=== PATIENT | female | born 1935 | race Caucasian/White ===

== ENCOUNTER 2016-08-04 | Outpatient (CLI) | payer MEDICARE, BC | END 2016-08-04 20:26 | disposition critical access hospital (66) | CPT/HCPCS: A0425; A0429 ==

== ENCOUNTER 2016-08-04 20:38 | Emergency (ER) | payer MEDICARE, BC ==
[2016-08-04] MEDS ORDERED: SODIUM CHLORIDE 0.9% 1,000 ML IV ONE (20:46)
[2016-08-04] MEDS ORDERED: ACETAMINOPHEN 325 MG TABLET PO STA (20:46)
[2016-08-04] MEDS ORDERED: ACETAMINOPHEN 325 MG TABLET PO ONE (20:49)
[2016-08-04] MEDS ORDERED: levoFLOXacin 250 MG TABLET PO STA (21:43)
[2016-08-04] MEDS ORDERED: levoFLOXacin 250 MG TABLET PO ONE (21:47)
== END 2016-08-04 23:38 | disposition home or self-care (01) ==
DX: N39.0 Urinary tract infection, site not specified (principal); R25.2 Cramp and spasm; R00.0 Tachycardia, unspecified; I69.354 Hemiplegia and hemiparesis following cerebral infarction affecting left non-dominant side; Z79.02 Long term (current) use of antithrombotics/antiplatelets
CPT/HCPCS: 36415; 70450; 71020; 80053; 81001; 83605; 83690; 83735; 83880; 84100; 84443; 84484; 85025; 87040; 87077; 87086; 87181; 93005; 93010; 99284; A9270

== ENCOUNTER 2016-08-05 14:37 | Inpatient (IN) | payer MEDICARE, BC ==
[2016-08-05] MEDS ORDERED: SODIUM CHLORIDE FLUSH 0.9% 10 ML SYRINGE IVP PRN (16:30)
[2016-08-05] MEDS: SODIUM CHLORIDE 0.9% 1,000 ML IV SCH (17:59)
[2016-08-05] MEDS: ACETAMINOPHEN 325 MG TABLET PO PRN (19:54)
[2016-08-05] MEDS: ATORVASTATIN 40 MG TABLET PO SCH (21:12)
[2016-08-05] MEDS: BACLOFEN 10 MG TABLET PO PRN (21:12)
[2016-08-05] MEDS: PREGABALIN 25 MG CAPSULE PO SCH (21:12)
[2016-08-05] MEDS: SODIUM CHLORIDE FLUSH 0.9% 10 ML SYRINGE IVP SCH (21:12)
[2016-08-06] MEDS: SODIUM CHLORIDE 0.9% 1,000 ML IV SCH ×2 (04:01→14:10)
[2016-08-06] MEDS: PREGABALIN 25 MG CAPSULE PO SCH ×3 (06:58→21:01)
[2016-08-06] MEDS: SODIUM CHLORIDE FLUSH 0.9% 10 ML SYRINGE IVP SCH ×3 (07:00→21:01)
[2016-08-06] MEDS ORDERED: cefTRIAXone 500 MG VIAL IVP SCH (09:00)
[2016-08-06] MEDS ORDERED: BIOTIN 5 MG PO SCH (09:00)
[2016-08-06] MEDS: cefTRIAXone 2 GM in SODIUM CHLORIDE 0.9% MINIBAG 100 ML IV SCH (09:53)
[2016-08-06] MEDS: CHOLECALCIFEROL 400 UNIT TABLET PO SCH (09:53)
[2016-08-06] MEDS: ENOXAPARIN 40 MG/0.4 ML SYRINGE SUBQ SCH (09:53)
[2016-08-06] MEDS: CLOPIDOGREL 75 MG TABLET PO SCH (09:53)
[2016-08-06] MEDS: MAGNESIUM OXIDE 400 MG TABLET PO SCH (09:53)
[2016-08-06] MEDS: POLYETHYLENE GLYCOL 3350 17 GM PACKET PO SCH (09:53)
[2016-08-06] MEDS: CALCIUM CARBONATE CHEW 500 MG TABLET PO SCH (09:53)
[2016-08-06] MEDS: BACLOFEN 10 MG TABLET PO PRN ×2 (09:58→16:48)
[2016-08-06] MEDS: ACETAMINOPHEN 325 MG TABLET PO PRN (16:48)
[2016-08-06] MEDS ORDERED: cloNIDine 0.1 MG TABLET PO PRN (18:01)
[2016-08-06] MEDS: ATORVASTATIN 40 MG TABLET PO SCH (20:47)
[2016-08-07] MEDS: SODIUM CHLORIDE 0.9% 1,000 ML IV SCH (00:35)
[2016-08-07] MEDS: ZOLPIDEM 5 MG TABLET PO PRN (00:36)
[2016-08-07] MEDS: PREGABALIN 25 MG CAPSULE PO SCH ×3 (05:34→22:01)
[2016-08-07] MEDS: SODIUM CHLORIDE FLUSH 0.9% 10 ML SYRINGE IVP SCH ×3 (05:35→22:03)
[2016-08-07] MEDS: BACLOFEN 10 MG TABLET PO PRN ×3 (05:40→22:02)
[2016-08-07] MEDS: cefTRIAXone 2 GM in SODIUM CHLORIDE 0.9% MINIBAG 100 ML IV SCH (08:55)
[2016-08-07] MEDS: ENOXAPARIN 40 MG/0.4 ML SYRINGE SUBQ SCH (08:55)
[2016-08-07] MEDS: CLOPIDOGREL 75 MG TABLET PO SCH (08:56)
[2016-08-07] MEDS: CALCIUM CARBONATE CHEW 500 MG TABLET PO SCH (08:56)
[2016-08-07] MEDS: MAGNESIUM OXIDE 400 MG TABLET PO SCH (08:56)
[2016-08-07] MEDS: POLYETHYLENE GLYCOL 3350 17 GM PACKET PO SCH (08:57)
[2016-08-07] MEDS: CHOLECALCIFEROL 400 UNIT TABLET PO SCH (08:57)
[2016-08-07] MEDS: POTASSIUM CHLORIDE 10 MEQ CAPSULE PO SCH (13:44)
[2016-08-07] MEDS: ATORVASTATIN 40 MG TABLET PO SCH (22:01)
[2016-08-07] MEDS: ACETAMINOPHEN 325 MG TABLET PO PRN (22:02)
[2016-08-08] MEDS: ZOLPIDEM 5 MG TABLET PO PRN (00:29)
[2016-08-08] MEDS: BACLOFEN 10 MG TABLET PO PRN (06:33)
[2016-08-08] MEDS: SODIUM CHLORIDE FLUSH 0.9% 10 ML SYRINGE IVP SCH (06:33)
[2016-08-08] MEDS: PREGABALIN 25 MG CAPSULE PO SCH (06:33)
[2016-08-08] MEDS: cefTRIAXone 2 GM in SODIUM CHLORIDE 0.9% MINIBAG 100 ML IV SCH (08:50)
[2016-08-08] MEDS ORDERED: POTASSIUM CHLORIDE 20 MEQ TABLET PO ONE (09:30)
[2016-08-08] MEDS: POTASSIUM CHLORIDE 10 MEQ CAPSULE PO SCH (10:29)
[2016-08-08] MEDS: MAGNESIUM OXIDE 400 MG TABLET PO SCH (10:29)
[2016-08-08] MEDS: CALCIUM CARBONATE CHEW 500 MG TABLET PO SCH (10:30)
[2016-08-08] MEDS: CHOLECALCIFEROL 400 UNIT TABLET PO SCH (10:30)
[2016-08-08] MEDS: CLOPIDOGREL 75 MG TABLET PO SCH (10:30)
[2016-08-08] MEDS: POLYETHYLENE GLYCOL 3350 17 GM PACKET PO SCH ×2 (10:31→10:42)
[2016-08-08] MEDS: ENOXAPARIN 40 MG/0.4 ML SYRINGE SUBQ SCH (10:31)
== END 2016-08-08 14:00 | disposition home or self-care (01) | DRG 871 ==
DX: A41.9 Sepsis, unspecified organism (principal); A41.51 Sepsis due to Escherichia coli [E. coli]; N39.0 Urinary tract infection, site not specified; B96.20 Unspecified Escherichia coli [E. coli] as the cause of diseases classified elsewhere; R65.21 Severe sepsis with septic shock; N30.00 Acute cystitis without hematuria; I69.354 Hemiplegia and hemiparesis following cerebral infarction affecting left non-dominant side; E78.00 Pure hypercholesterolemia, unspecified; E87.6 Hypokalemia; I69.398 Other sequelae of cerebral infarction; R47.9 Unspecified speech disturbances; Z79.02 Long term (current) use of antithrombotics/antiplatelets; Z87.891 Personal history of nicotine dependence; Z91.81 History of falling

== ENCOUNTER 2016-08-29 08:00 | Outpatient (CLI) | payer MEDICARE, BC | END 2016-08-29 08:01 | disposition home or self-care (01) | DX: R30.0 Dysuria (principal); E87.6 Hypokalemia; N39.0 Urinary tract infection, site not specified ==

== ENCOUNTER 2017-06-12 14:37 | Outpatient (CLI) | payer MEDICARE, BC ==
[2017-06-12 13:11] LABS: BASOPHILS # (AUTO) 0.1 10^3/uL (0.0-0.1); BASOPHILS % (AUTO) 1.1 %; EOSINOPHILS # (AUTO) 0.1 10^3/uL (0.0-0.7); EOSINOPHILS % (AUTO) 1.8 %; HCT - HEMATOCRIT 44.2 % (37.0-47.0); HGB - HEMOGLOBIN 14.9 g/dL (12.0-16.0); LYMPHOCYTES % (AUTO) 39.1 %; MEAN CORPUSCULAR HGB CONC 33.7 g/dL (32.0-36.0); MEAN CORPUSCULAR VOLUME 91.9 fL (81.0-99.0); MEAN PLATELET VOLUME 9.5 fL (7.9-10.8); MONOCYTES # (AUTO) 0.4 10^3/uL (0.0-1.0); MONOCYTES % (AUTO) 8.5 %; NEUTROPHILS # (AUTO) 2.5 10^3/uL (1.5-6.6); NEUTROPHILS % (AUTO) 49.5 %; RED BLOOD COUNT 4.81 10^6/uL (4.20-5.40); UNCORRECTED WHITE BLOOD COUNT 5.1 x10^3/uL; WHITE BLOOD COUNT 5.1 x10^3/uL (4.8-10.8)
[2017-06-12 13:31] LABS: ALBUMIN/GLOBULIN RATIO 1.2 (1.0-2.2); BILIRUBIN,TOTAL 0.6 mg/dL (0.2-1.0); BUN - BLOOD UREA NITROGEN 17 mg/dL (6-20); CALCIUM 9.6 mg/dL (8.5-10.3); CARBON DIOXIDE - CO2 30 mmol/L (21-32); CHLORIDE 105 mmol/L (101-111); CHOL/HDL RATIO 2.9 (<4.4); CHOLESTEROL 202 mg/dL; CREATININE 0.7 mg/dL (0.4-1.0); GFR - MDRD 80 (>89); GLUCOSE 88 mg/dL (70-100); HDL CHOLESTEROL 70 mg/dL; LDL/HDL RATIO 1.5 (<4.4); POTASSIUM 4.4 mmol/L (3.5-5.0); SODIUM 141 mmol/L (135-145); TOTAL PROTEIN 7.9 g/dL (6.7-8.2); TRIGLYCERIDES 130 mg/dL; VLDL CHOLESTEROL 26 mg/dL
[2017-06-12 13:41] LABS: HEMOGLOBIN A1C 0.54 g/dL
== END 2017-06-12 14:38 | disposition home or self-care (01) ==
LOC: LAB.R 14:37
PROVIDERS: ATTEND Internal Medicine
DX: I63.9 Cerebral infarction, unspecified (principal); M19.90 Unspecified osteoarthritis, unspecified site; E78.5 Hyperlipidemia, unspecified; R73.9 Hyperglycemia, unspecified; Z79.899 Other long term (current) drug therapy
CPT/HCPCS: 80053; 80061; 83036; 84443; 85025

== ENCOUNTER 2017-07-25 08:00 | Outpatient (CLI) | payer MEDICARE, BC ==
[2017-07-25 14:10] LABS: ALT ALANINE AMINOTRANSFERASE 17 IU/L (10-60); AST ASPARTATE AMINOTRANSFERASE 22 IU/L (10-42); LDL CHOLESTEROL,DIRECT 84 mg/dL
== END 2017-07-25 08:01 | disposition home or self-care (01) ==
LOC: LAB.R 08:00
PROVIDERS: ATTEND Internal Medicine
DX: E78.5 Hyperlipidemia, unspecified (principal)
CPT/HCPCS: 83721; 84450; 84460

== ENCOUNTER 2017-10-26 12:45 | Emergency (ER) | payer MEDICARE, BC ==
[2017-10-26] MEDS ORDERED: oxyCODONE 5 MG TABLET PO STA (12:56)
--- NOTE | 2017-10-26 13:00 | ED Physician Documentation ---
History of Present Illness - Stated complaint Stated Complaint: GLF/HD PX - Chief complaint Chief Complaint: Heent - History obtained from History obtained from: Patient - History of Present Illness Timing: How many minutes ago (15) Pain level max: 8 Pain level now: 8 Improved by: rest Worsened by: palpation - Additonal information Additional information: Patient is an 82-year-old female who was walking out of the hospital with a utilizing her walker when she tripped and fell, landing backwards on her head. Initially seen and declined any care in the lobby. However she started to have increasing head pain and swelling to the occiput. She does take Plavix and so her checked her into the emergency department. She denies any neck or back pain. No hip pain. No leg pain. No numbness or tingling. No loss of consciousness. No vomiting. Review of Systems Ten Systems: 10 systems reviewed and negative Constitutional: denies: Fever, Chills Ears: denies: Ear pain Nose: denies: Rhinorrhea / runny nose, Congestion Throat: denies: Sore throat Cardiac: denies: Chest pain / pressure Respiratory: denies: Cough GI: denies: Abdominal Pain, Vomiting, Diarrhea Skin: denies: Rash Musculoskeletal: denies: Neck pain, Back pain Neurologic: denies: Focal weakness, Numbness, Confused, Altered mental status, LOC PD PAST MEDICAL HISTORY - Past Medical History Cardiovascular: High cholesterol Respiratory: None Neuro: CVA Endocrine/Autoimmune: None GI: None : None HEENT: Chronic hearing loss, Other Psych: None Musculoskeletal: None Derm: None - Past Surgical History Past Surgical History: No General: Colonoscopy Ortho: Other /GL[employer]ILN [employer]ACER: Dilation and currettage, Other HEENT: Cataracts - Present Medications Home Medications: Ambulatory Orders Medication Instructions Recorded Confirmed Baclofen 20 mg PO 0600,1200 05/05/15 08/06/16 Clopidogrel [Plavix] 75 mg PO DAILY@1200 05/05/15 08/06/16 Pregabalin [Lyrica] 75 mg PO BID 06/01/15 08/06/16 Magnesium Oxide [Magnesium] 400 mg PO QDDINNER 08/02/15 08/06/16 Atorvastatin Calcium 80 mg PO QPM 08/05/16 08/05/16 Duloxetine HCl 30 mg PO QDDINNER 08/05/16 08/06/16 Baclofen 40 mg PO QPM 08/06/16 08/06/16 Naproxen Sodium [Aleve] 220 mg PO DAILY 08/06/16 08/06/16 Levofloxacin [Levaquin] 750 mg PO BIDWM #4 tablet 08/08/16 Potassium Chloride [Micro-K] 10 meq PO DAILYWM #15 capsule 08/08/16 - Allergies Allergies/Adverse Reactions: Allergies Allergy/AdvReac Type Severity Reaction Status Date / Time No Known Drug Allergies Allergy Verified 08/02/15 13:23 - Social History Does the pt smoke?: No Smoking Status: Never smoker Does the pt drink ETOH?: Yes Does the pt have substance abuse?: No - Immunizations Immunizations are current?: Yes PD ED PE NORMAL - Vitals Vital signs reviewed: Yes - General General: Alert and oriented X 3, No acute distress - HEENT HEENT: PERRL, EOMI, Moist mucous membranes, Other (posterior scalp hematoma, no palpable skull fractures) - Neck Neck: Supple, no meningeal sign, No bony TTP, Other (FROM without pain) - Cardiac Cardiac: RRR, Strong equal pulses - Respiratory Respiratory: No respiratory distress, Clear bilaterally - Abdomen Abdomen: Soft, Non tender, Non distended - Back Back: No CVA TTP, No spinal TTP - Derm Derm: Warm and dry, No rash - Extremities Extremities: No deformity, No tenderness to palpate, Normal ROM s pain - Neuro Neuro: Alert and oriented X 3, sticker hand 2-12 intact, No motor deficit, No sensory deficit, Normal speech Eye Opening: Spontaneous Motor: Obeys Commands Verbal: Oriented GCS Score: 15 - Psych Psych: Normal mood Results - Vitals Vitals: Vital Signs - 24 hr 10/26/17 10/26/17 12:47 14:41 Temperature 36.7 C Heart Rate 73 62 Respiratory 16 18 Rate Blood Pressure 165/76 H 170/70 H O2 Saturation 97 94 Oxygen O2 Source Room air - Rads (name of study) head CT Radiology: Prelim report reviewed, EMP read contemporaneously, See rad report ( No acute intracranial abnormality. No skull fracture) PD MEDICAL DECISION MAKING - ED course Complexity details: reviewed results, re-evaluated patient, considered differential, d/w patient, d/w family ED course: Patient is an 82-year-old female who fell today, striking the occiput of her head on the ground. Small posterior occipital hematoma. No palpable skull fractures. She is on Plavix. Head CT is negative. Pain well controlled. Ambulating well with her walker. is comfortable taking her home and will stay at home with her today. No neck or back pain. No hip pain. Patient counseled regarding signs and symptoms for which I believe and urgent re- evaluation would be necessary. Patient with good understanding of and agreement to plan and is comfortable going home at this time This document was made in part using voice recognition software. While efforts are made to proofread this document, sound alike and grammatical errors may occur. Departure - Departure Disposition: Home, Self Care Clinical Impression: Fall Qualifiers: Encounter type: initial encounter Qualified Code(s): W19.XXXA - Unspecified fall, initial encounter Head injury Qualifiers: Encounter type: initial encounter Qualified Code(s): S09.90XA - Unspecified injury of head, initial encounter Condition: Good Instructions: ED Head Injury Closed Follow-Up: Marin Landa MD [Primary Care Provider] - Within 1 week Comments: Return if you worsen. Your head CT is normal today. You can use tylenol at home as needed for pain. Discharge Date/Time: 10/26/17 14:40
--- NOTE | 2017-10-26 13:46 | CT Preliminary Report ---
Exam: CT HEAD W/O IMPRESSION: 1. Small right occipital scalp hematoma. 2. No acute intracranial abnormality nor bleed. [facility] SITE ID: [id number]
--- NOTE | 2017-10-26 13:57 | CT Report ---
EXAM: CT HEAD EXAM DATE: 10/26/2017 01:14 PM. CLINICAL HISTORY: Prior stroke. Fall, occipital head injury, patient takes Plavix. Occipital headache . COMPARISON: 08/04/2016. TECHNIQUE: Multiaxial CT images were obtained from the foramen magnum to the vertex. Reformats: Coron al. IV contrast: None. In accordance with CT protocol optimization, one or more of the following dose reduction techniques w ere utilized for this exam: automated exposure control, adjustment of mA and/or KV based on patient s ize, or use of iterative reconstructive technique. FINDINGS: Parenchyma: Old 1 cm vascular insult posterior limb right internal capsule. No intraparenchymal hemorrhage. No evidence of mass, midline shift, or CT findings of acute infarctio n. Sy-white differentiation is distinct. Diffuse chronic microangiopathic white matter changes are evident. Extraaxial Spaces: Normal for age. No subdural or epidural collections identified. Ventricles: The ventricles and cortical sulci are enlarged, consistent with age-related tissue loss. Sinuses and orbits: Imaged paranasal sinuses, orbits, and mastoids show no significant abnormality. Bones: No evidence of fracture or calvarial defect. Other: Small hematoma right occipital scalp. IMPRESSION: 1. Small right occipital scalp hematoma. 2. No acute intracranial abnormality nor bleed. [facility] Referring Provider Line: [phone] SITE ID: [id number]
[2017-10-26 14:42] VITALS: BP 170/70
== END 2017-10-26 14:40 | disposition home or self-care (01) ==
LOC: ED 12:45
DX: S09.90XA Unspecified injury of head, initial encounter (principal); W01.0XXA Fall on same level from slipping, tripping and stumbling without subsequent striking against object, initial encounter; Y93.01 Activity, walking, marching and hiking; E78.00 Pure hypercholesterolemia, unspecified; Z86.73 Personal history of transient ischemic attack (TIA), and cerebral infarction without residual deficits
CPT/HCPCS: 70450; 99283; A9270

== ENCOUNTER 2018-07-10 09:00 | Outpatient (CLI) | payer MEDICARE, BC ==
[2018-07-10 11:42] LABS: BASOPHILS % (AUTO) 0.8 %; EOSINOPHILS # (AUTO) 0.1 10^3/uL (0.0-0.7); HGB - HEMOGLOBIN 15.7 g/dL (12.0-16.0); LYMPHOCYTES # (AUTO) 1.9 10^3/uL (1.5-3.5); LYMPHOCYTES % (AUTO) 32.9 %; MEAN CORPUSCULAR HEMOGLOBIN 31.1 pg (27.0-31.0); MEAN CORPUSCULAR HGB CONC 33.6 g/dL (32.0-36.0); MEAN CORPUSCULAR VOLUME 92.6 fL (81.0-99.0); MEAN PLATELET VOLUME 9.4 fL (7.9-10.8); MONOCYTES # (AUTO) 0.4 10^3/uL (0.0-1.0); MONOCYTES % (AUTO) 7.6 %; NEUTROPHILS # (AUTO) 3.3 10^3/uL (1.5-6.6); NEUTROPHILS % (AUTO) 56.7 %; PLT - PLATELET COUNT 227 10^3/uL (130-450); RED BLOOD COUNT 5.05 10^6/uL (4.20-5.40); RED CELL DISTRIBUTION WIDTH 13.4 % (12.0-15.0); WHITE BLOOD COUNT 5.9 x10^3/uL (4.8-10.8)
[2018-07-10 11:55] LABS: ALBUMIN 4.3 g/dL (3.2-5.5); ALBUMIN/GLOBULIN RATIO 1.2 (1.0-2.2); ALKALINE PHOSPHATASE 93 IU/L (42-121); ALT ALANINE AMINOTRANSFERASE 18 IU/L (10-60); AST ASPARTATE AMINOTRANSFERASE 23 IU/L (10-42); BILIRUBIN,TOTAL 0.7 mg/dL (0.2-1.0); BUN - BLOOD UREA NITROGEN 20 mg/dL (6-20); CALCIUM 9.2 mg/dL (8.5-10.3); CARBON DIOXIDE - CO2 29 mmol/L (21-32); CHLORIDE 103 mmol/L (101-111); CHOL/HDL RATIO 2.8 (<4.4); CHOLESTEROL 215 mg/dL; CREATININE 0.7 mg/dL (0.4-1.0); GFR - MDRD 80 (>89); GLUCOSE 87 mg/dL (70-100); HDL CHOLESTEROL 76 mg/dL; LDL CHOLESTEROL,CALCULATED 119 mg/dL; LDL/HDL RATIO 1.6 (<4.4); SODIUM 139 mmol/L (135-145); VLDL CHOLESTEROL 20 mg/dL
== END 2018-07-10 23:59 | disposition home or self-care (01) ==
LOC: LAB.R 09:00
PROVIDERS: ATTEND Internal Medicine
DX: G62.9 Polyneuropathy, unspecified (principal); I63.9 Cerebral infarction, unspecified; E78.5 Hyperlipidemia, unspecified; R73.9 Hyperglycemia, unspecified; M19.90 Unspecified osteoarthritis, unspecified site; Z79.899 Other long term (current) drug therapy
CPT/HCPCS: 80053; 80061; 83721; 84443; 85025

== ENCOUNTER 2018-07-23 12:56 | Outpatient (CLI) | payer MEDICARE, BC ==
--- NOTE | 2018-07-24 09:37 | DEXA Report ---
Reason: POSTMENOPAUSAL,OSTEOPENIA Procedure Date: 07/23/2018 Accession Number: [id number] / [id number] Procedure: DEX - Dexa Spine and/or Hip CPT Code: FULL RESULT: EXAM: Dexa Spine and/or Hip DATE: 07/23/2018 2:15 PM CLINICAL HISTORY: POSTMENOPAUSAL,OSTEOPENIA TECHNIQUE: Dual energy x-ray absorptiometry (DXA) was performed on a Zipfit System. Regions measured are the AP Spine, femoral neck, and if needed forearm. COMPARISON: None. In accordance with the International Society for Clinical Densitometry (ISCD) guidelines, data from previous exams may be reanalyzed using current recommendations and techniques. This is done to allow a more accurate basis for comparison with the current study. FINDINGS: The data for the lumbar spine is as follows: BMD (g/cm/cm) T-SCORE Z-SCORE REGION L1 0.946 -1.5 0.3 L2 0.923 -2.3 -0.5 L3 1.058 -1.2 0.7 L4 1.006 -1.6 0.2 TOTAL 0.986 -1.6 0.2 NOTE: All evaluable vertebrae are used for classification The data for the hip is as follows: BMD (g/cm/cm) T-SCORE Z-SCORE REGION Neck 0.677 -2.6 -0.3 TOTAL 0.561 -3.5 -1.4 NOTE: The femoral neck or total proximal femur, whichever is lowest, is used for classification. IMPRESSION: THE WHO CLASSIFICATION BASED ON THE INTERNATIONAL REFERENCE STANDARD IS OSTEOPOROSIS. THE FRACTURE RISK IS HIGH. RECOMMENDATION: Patients with diagnosis of osteoporosis or osteopenia should have regular bone mineral density assessment. For those eligible for Medicare, routine testing is allowed once every 2 years. Testing frequency can be increased for patients who have rapidly progressing disease or for those who are receiving medical therapy to restore bone mass. COMMENT: World Health Organization (WHO) definitions for osteoporosis and osteopenia: NORMAL BMD: T-score at -1.0 or higher, fracture risk is low OSTEOPENIA BMD: T-score between -1.0 and -2.5, fracture risk is increased. OSTEOPOROSIS BMD: T-score at -2.5 or lower, fracture risk is high. National Osteoporosis Foundation recommends: 1. Obtain adequate dietary calcium (at least 1200 mg per day) and vitamin D (400-800 international units per day). 2. Participate, as appropriate, in regular weightbearing and muscle-strengthening exercise. 3. Avoid tobacco use and reduce alcohol and caffeine intake. 4. For more detailed information see the website at www.NOF.org.
== END 2018-07-23 12:57 | disposition home or self-care (01) ==
LOC: DI 12:56
PROVIDERS: ATTEND Internal Medicine
DX: M81.0 Age-related osteoporosis without current pathological fracture (principal)
CPT/HCPCS: 77080

== ENCOUNTER 2018-08-07 11:38 | Outpatient (CLI) | payer MEDICARE, BC ==
--- NOTE | 2018-08-07 14:30 | XRAY Report ---
Reason: RIB PAIN,LEFT SIDED Procedure Date: 08/07/2018 Accession Number: [id number] / [id number] Procedure: XR - Chest 2 View X-Ray CPT Code: 98569 FULL RESULT: EXAM: CHEST RADIOGRAPHY EXAM DATE: 08/07/2018 12:13 PM. CLINICAL HISTORY: Rib pain, left sided. COMPARISON: Chest 2 view PA/LAT 08/04/2016 9:12 PM. TECHNIQUE: 2 views. FINDINGS: Lungs/Pleura: Minor subsegmental plate-like atelectasis left lung base. No confluent airspace opacities. No effusion or extraventilatory air. Mediastinum: Heart and mediastinal contours are unremarkable. Other: No appreciable displaced rib fractures. IMPRESSION: Minor left basilar atelectasis. [facility]
--- NOTE | 2018-08-08 11:06 | XRAY Report ---
Reason: RIB PAIN,LEFT SIDED Procedure Date: 08/07/2018 Accession Number: [id number] / [id number] Procedure: XR - Ribs 2 View LT CPT Code: FULL RESULT: EXAM: LEFT RIB RADIOGRAPHY EXAM DATE: 08/07/2018 12:13 PM. CLINICAL HISTORY: Rib pain, left-sided. COMPARISON: CHEST 2 VIEW PA/LAT 08/04/2016 9:12 PM. TECHNIQUE: 2 views. FINDINGS: Bones: No appreciable displaced rib fractures noted. Lungs: No focal opacities evident accounting for technique. No pneumothorax or pleural effusions. Mediastinum: Heart and cardiomediastinal contours are unremarkable accounting for technique. Other: None. IMPRESSION: No appreciable displaced left-sided rib fractures. [facility]
== END 2018-08-07 11:39 | disposition home or self-care (01) ==
LOC: DI 11:38
PROVIDERS: ATTEND Internal Medicine
DX: R07.81 Pleurodynia (principal); J98.11 Atelectasis
CPT/HCPCS: 71046

== ENCOUNTER 2018-08-18 08:04 | Outpatient (CLI) | payer MEDICARE, BC | END 2018-08-18 08:05 | disposition critical access hospital (66) | LOC: EMS 08:04 | PROVIDERS: ATTEND Surgery | DX: M62.838 Other muscle spasm (principal) | CPT/HCPCS: A0425; A0429 ==

== ENCOUNTER 2018-08-18 08:19 | Emergency (ER) | payer MEDICARE, BC ==
[2018-08-18] MEDS ORDERED: SODIUM CHLORIDE 0.9% 1,000 ML IV ONE ×2 (08:34→09:17)
--- NOTE | 2018-08-18 08:36 | ED Physician Documentation ---
History of Present Illness - Stated complaint Stated Complaint: LEG CRAMP - Chief complaint Chief Complaint: Ext Problem - History obtained from History obtained from: Patient, Family, EMS - History of Present Illness Timing: Enter time (99), Today - Additonal information Additional information: 83-year-old female status post CVA with left hemiparesis is cared for at home by her and she is recently started Fosamax for osteoporosis. She had some diarrhea following this last week when she took a dose and she is taken a second dose last night and following this she developed severe cramps in her left thigh. The cramps have been so severe that she has called the ambulance this morning. She indicates that she has not been ill this past week with anything else and her confirms this stating that she has been getting around in the house with her walker and has not been ill since the bout of diarrhea over the weekend last week. Review of Systems Constitutional: denies: Fever, Chills Eyes: denies: Decreased vision Ears: denies: Ear pain Nose: denies: Congestion Throat: denies: Sore throat Cardiac: denies: Chest pain / pressure Respiratory: denies: Dyspnea, Cough GI: reports: Diarrhea. 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, Other HEENT: Cataracts - Present Medications Home Medications: Ambulatory Orders Medication Instructions Recorded Confirmed RX: Baclofen 20 mg PO 0600,1200 05/05/15 08/18/18 RX: Clopidogrel [Plavix] 75 mg PO DAILY@1200 05/05/15 08/18/18 RX: Pregabalin [Lyrica] 75 mg PO BID 06/01/15 08/18/18 RX: Magnesium Oxide [Magnesium] 400 mg PO QDDINNER 08/02/15 08/18/18 RX: Baclofen 40 mg PO QPM 08/06/16 08/18/18 Citalopram [CeleXA] 20 mg PO DAILY 08/18/18 08/18/18 Hydrocodone/Acetaminophen 1 - 2 each PO Q6H PRN #14 tablet 08/18/18 [Hydrocodon-Acetaminophen 5-325] RX: Rosuvastatin Calcium 10 mg PO DAILY 08/18/18 08/18/18 - Allergies Allergies/Adverse Reactions: Allergies Allergy/AdvReac Type Severity Reaction Status Date / Time No Known Drug Allergies Allergy Verified 08/18/18 08:25 - Social History Does the pt smoke?: No Smoking Status: Never smoker Does the pt drink ETOH?: Yes Does the pt have substance abuse?: No - Immunizations Immunizations are current?: Yes PD ED PE NORMAL - Vitals Vital signs reviewed: Yes (tachy and hypertensive) - General General: Alert and oriented X 3, Well developed/nourished, Other (appears to be in distress and in pain. ) - HEENT HEENT: Atraumatic, PERRL, EOMI - Neck Neck: Supple, no meningeal sign - Cardiac Cardiac: Other (tachy 2/6 holosystolic murmer at LSB) - Respiratory Respiratory: No respiratory distress, Clear bilaterally - Abdomen Abdomen: Soft, Non tender - Back Back: No CVA TTP, No spinal TTP - Derm Derm: Normal color, Warm and dry, No rash - Extremities Extremities: No deformity, Other (There is spasm of the left thigh and the muscle is tense and tender. ) - Neuro Neuro: Alert and oriented X 3, throw out clerk 2-12 intact, Normal speech Eye Opening: Spontaneous Motor: Obeys Commands Verbal: Oriented GCS Score: 15 - Psych Psych: Normal mood, Normal affect Results - Vitals Vitals: Vital Signs - 24 hr 08/18/18 08/18/18 08/18/18 08:22 09:32 10:23 Temperature 37.5 C 36.6 C Heart Rate 114 H 93 91 Respiratory 22 18 18 Rate Blood Pressure 155/122 H 168/74 H 161/64 H O2 Saturation 93 93 92 Oxygen O2 Source Room air - Labs Labs: Laboratory Tests 08/18/18 08/18/18 08/18/18 08:30 08:30 08:30 WBC 7.6 RBC 4.65 Hgb 14.7 Hct 42.4 MCV 91.1 MCH 31.6 H MCHC 34.7 RDW 13.4 Plt Count 217 MPV 8.9 Neut # (Auto) 6.3 Lymph # (Auto) 0.7 L Winston # (Auto) 0.4 Eos # (Auto) 0.0 Baso # (Auto) 0.0 Absolute Nucleated RBC 0.00 Nucleated RBC % 0.0 Sodium 138 Potassium 3.9 Chloride 101 Carbon Dioxide 24 Anion Gap 13.0 BUN 12 Creatinine 0.7 Estimated GFR (MDRD) 80 L Glucose 99 Calcium 8.5 Magnesium 2.4 Total Bilirubin 1.1 H AST 26 ALT 24 Alkaline Phosphatase 89 Total Creatine Kinase 64 CK-MB (CK-2) 1.2 Troponin I < 0.04 Total Protein 7.8 Albumin 3.9 Globulin 3.9 Albumin/Globulin Ratio 1.0 Lipase 19 L Urine Color Urine Clarity Urine pH Ur Specific [place] Urine Protein Urine Glucose (UA) Urine Ketones Urine Occult Blood Urine Nitrite Urine Bilirubin Urine Urobilinogen Ur Leukocyte Esterase Ur Microscopic Review Urine Culture Comments 08/18/18 10:00 WBC RBC Hgb Hct MCV MCH MCHC RDW Plt Count MPV Neut # (Auto) Lymph # (Auto) Winston # (Auto) Eos # (Auto) Baso # (Auto) Absolute Nucleated RBC Nucleated RBC % Sodium Potassium Chloride Carbon Dioxide Anion Gap BUN Creatinine Estimated GFR (MDRD) Glucose Calcium Magnesium Total Bilirubin AST ALT Alkaline Phosphatase Total Creatine Kinase CK-MB (CK-2) Troponin I Total Protein Albumin Globulin Albumin/Globulin Ratio Lipase Urine Color YELLOW Urine Clarity CLEAR Urine pH 7.5 Ur Specific [place] 1.015 Urine Protein NEGATIVE Urine Glucose (UA) NEGATIVE Urine Ketones 15 H Urine Occult Blood NEGATIVE Urine Nitrite NEGATIVE Urine Bilirubin NEGATIVE Urine Urobilinogen 0.2 (NORMAL) Ur Leukocyte Esterase NEGATIVE Ur Microscopic Review NOT INDICATED Urine Culture Comments NOT INDICATED Procedures - IVC sono (time) 0835 Bedside IVC sono: IVC measures (cm) (0.82), IVC collapsed c insp (cm) (complete), Dehydration (est 2 liters) PD MEDICAL DECISION MAKING - ED course Complexity details: reviewed old records, reviewed results, re-evaluated patient, considered differential, d/w patient, d/w family ED course: 83-year-old female with a prior history of CVA has developed severe cramping in the left thigh that has kept her awake all night and has been unrelenting. She is developed some pain in her back associated with this. She is concerned that this is a result of taking the Fosamax. Here in the emergency department she is found to be significantly dehydrated and she is hydrated with IV saline she is given dexamethasone and Toradol for pain relief. She does get relief of her pain and of her spasm. She has no evidence of urinary tract infection today. Departure - Departure Disposition: 01 Home, Self Care Clinical Impression: Dehydration, Leg cramping Condition: Stable Instructions: ED Dehydration Follow-Up: Marin Landa MD [Primary Care Provider] - Prescriptions: Hydrocodone/Acetaminophen [Hydrocodon-Acetaminophen 5-325] 1 - 2 each PO Q6H PRN #14 tablet PRN Reason: pain Discharge Date/Time: 08/18/18 10:54
[2018-08-18 08:53] LABS: BASOPHILS % (AUTO) 0.6 %; EOSINOPHILS % (AUTO) 0.6 %; HGB - HEMOGLOBIN 14.7 g/dL (12.0-16.0); LYMPHOCYTES # (AUTO) 0.7 10^3/uL (1.5-3.5); LYMPHOCYTES % (AUTO) 9.5 %; MEAN CORPUSCULAR HEMOGLOBIN 31.6 pg (27.0-31.0); MEAN CORPUSCULAR HGB CONC 34.7 g/dL (32.0-36.0); MEAN CORPUSCULAR VOLUME 91.1 fL (81.0-99.0); MEAN PLATELET VOLUME 8.9 fL (7.9-10.8); MONOCYTES # (AUTO) 0.4 10^3/uL (0.0-1.0); MONOCYTES % (AUTO) 5.6 %; NEUTROPHILS # (AUTO) 6.3 10^3/uL (1.5-6.6); NEUTROPHILS % (AUTO) 83.7 %; PLT - PLATELET COUNT 217 10^3/uL (130-450); RED BLOOD COUNT 4.65 10^6/uL (4.20-5.40); RED CELL DISTRIBUTION WIDTH 13.4 % (12.0-15.0); WHITE BLOOD COUNT 7.6 x10^3/uL (4.8-10.8)
[2018-08-18] MEDS ORDERED: DEXAMETHASONE 10 MG/ML VIAL IVP STA (08:58)
[2018-08-18 09:05] LABS: ALBUMIN 3.9 g/dL (3.2-5.5); BILIRUBIN,TOTAL 1.1 mg/dL (0.2-1.0); CALCIUM 8.5 mg/dL (8.5-10.3); CREATININE 0.7 mg/dL (0.4-1.0); MAGNESIUM 2.4 mg/dL (1.7-2.8); TOTAL PROTEIN 7.8 g/dL (6.7-8.2)
[2018-08-18 09:10] LABS: TROPONIN I < 0.04 ng/mL (<0.49)
[2018-08-18 09:12] LABS: CREATINE KINASE MB 1.2 ng/mL (0.6-6.3)
[2018-08-18] MEDS ORDERED: KETOROLAC 30 MG/ML VIAL IVP STA (09:17)
[2018-08-18 10:17] LABS: BILIRUBIN,URINE NEGATIVE (NEGATIVE); GLUCOSE, URINE (UA) NEGATIVE (NEGATIVE); KETONES,URINE (UA) 15 mg/dL (NEGATIVE); LEUKOCYTE ESTERASE, URINE NEGATIVE (NEGATIVE); NITRITE,URINE NEGATIVE (NEGATIVE); OCCULT BLOOD,URINE NEGATIVE (NEGATIVE); PH,URINE 7.5 PH (5.0-7.5); PROTEIN,URINE NEGATIVE (NEGATIVE); UROBILINOGEN,URINE 0.2 (NORMAL) E.U./dL (NORMAL)
[2018-08-18 10:21] LABS: CLARITY,URINE CLEAR (CLEAR)
[2018-08-18 10:24] VITALS: BP 161/64
== END 2018-08-18 10:54 | disposition home or self-care (01) ==
LOC: EDUNIT# → EDBD → ED 08:19
DX: R25.2 Cramp and spasm (principal); E86.0 Dehydration; M81.0 Age-related osteoporosis without current pathological fracture; E78.00 Pure hypercholesterolemia, unspecified
CPT/HCPCS: 36415; 80053; 81001; 81003; 82550; 82553; 83690; 83735; 84484; 85025; 87086; 96361; 96374; 96375; 99284

== ENCOUNTER 2020-01-05 16:07 | Outpatient (CLI) | payer MEDICARE, BC ==
[2020-01-05 17:53] LABS: BASOPHILS # (AUTO) 0.1 10^3/uL (0.0-0.1); BASOPHILS % (AUTO) 0.9 %; EOSINOPHILS # (AUTO) 0.2 10^3/uL (0.0-0.7); EOSINOPHILS % (AUTO) 2.2 %; HGB - HEMOGLOBIN 15.4 g/dL (12.0-16.0); LYMPHOCYTES # (AUTO) 2.8 10^3/uL (1.5-3.5); LYMPHOCYTES % (AUTO) 40.4 %; MEAN CORPUSCULAR HEMOGLOBIN 31.3 pg (27.0-31.0); MEAN CORPUSCULAR HGB CONC 32.8 g/dL (32.0-36.0); MEAN CORPUSCULAR VOLUME 95.5 fL (81.0-99.0); MEAN PLATELET VOLUME 10.8 fL (7.9-10.8); MONOCYTES # (AUTO) 0.7 10^3/uL (0.0-1.0); NEUTROPHILS # (AUTO) 3.2 10^3/uL (1.5-6.6); NEUTROPHILS % (AUTO) 46.2 %; PLT - PLATELET COUNT 249 10^3/uL (130-450); RED BLOOD COUNT 4.92 10^6/uL (4.20-5.40); RED CELL DISTRIBUTION WIDTH 12.4 % (12.0-15.0); WHITE BLOOD COUNT 6.8 x10^3/uL (4.8-10.8)
[2020-01-05 18:03] LABS: ALBUMIN 4.5 g/dL (3.2-5.5); ALBUMIN/GLOBULIN RATIO 1.3 (1.0-2.2); BILIRUBIN,TOTAL 0.8 mg/dL (0.2-1.0); CALCIUM 9.5 mg/dL (8.5-10.3); CREATININE 0.9 mg/dL (0.4-1.0)
== END 2020-01-05 23:59 | disposition home or self-care (01) ==
LOC: LAB.WCP 16:07
PROVIDERS: ATTEND Family Medicine
DX: G25.1 Drug-induced tremor (principal); G47.9 Sleep disorder, unspecified; G62.9 Polyneuropathy, unspecified; R73.9 Hyperglycemia, unspecified; I63.9 Cerebral infarction, unspecified
CPT/HCPCS: 36415; 80053; 84443; 85025

== ENCOUNTER 2021-05-05 17:16 | Outpatient (CLI) | payer MEDICARE, BC ==
--- NOTE | 2021-05-05 18:51 | Ultrasound Report ---
PROCEDURE: Duplex Ext Veins Left INDICATIONS: EDEMA L LEG TECHNIQUE: Real-time imaging, as well as color and pulse Doppler interrogation, were performed of the lower extr emity deep veins from the inguinal ligament to the popliteal fossa. COMPARISON: None. FINDINGS: The deep veins are normally compressible, and free of intraluminal thrombus. Color and pu lse Doppler demonstrate normal phasic intraluminal flow. There is normal augmentation response to di stal compression maneuver. IMPRESSION: Negative left lower extremity ultrasound for DVT. Reviewed by: Nitish Oliva MD on 05/05/2021 6:49 PM PDT Approved by: Nitish Oliva MD on 05/05/2021 6:49 PM PDT Station ID: [id number]
== END 2021-05-05 17:17 | disposition home or self-care (01) ==
LOC: DI 17:16
PROVIDERS: ATTEND Internal Medicine
DX: R60.0 Localized edema (principal)